=== PATIENT | female | born 1980 | race Caucasian/White ===

== ENCOUNTER → 2023-06-25 11:28 | Outpatient (REF) | payer OTHER, SELFPAY | LOC: PAVMRI 11:28 | PROVIDERS: ATTENDING PHYSICIAN Physician Assistant | DX: E78.5 Hyperlipidemia, unspecified (principal); D75.839 Thrombocytosis, unspecified; G43.109 Migraine with aura, not intractable, without status migrainosus | CPT/HCPCS: 70553; A9575 ==

== ENCOUNTER → 2024-08-04 06:27 | Outpatient (REF) | payer OTHER, SELFPAY | LOC: RAD 06:27 | PROVIDERS: ATTENDING PHYSICIAN Nurse Practitioner; FAMILY PHYSICIAN Physician Assistant | DX: I65.23 Occlusion and stenosis of bilateral carotid arteries (principal) | CPT/HCPCS: 70496; 70498; Q9967 ==